=== PATIENT | male | born 1965 | race Caucasian/White ===

== ENCOUNTER → 2021-07-22 | Outpatient (CLI) | payer OTHER ==
[2021-07-22] VITALS (9 sets, daily range): BP systolic 110–121; BP diastolic 66–76
[~2021-07-22] VITALS: Ht 172.7 cm; Wt 95.3 kg
[~2021-07-22] MED LIST: REGENERON 1200mg/250ml NS 250 ML IV ONE
== END | disposition home or self-care (01) ==
LOC: ER 08:49
PROVIDERS: ATTEND Internal Medicine
DX: U07.1 COVID-19 (principal)
CPT/HCPCS: J7050; M0243; Q0243